=== PATIENT | female | born 1970 | race Caucasian/White ===

== ENCOUNTER 2017-06-12 20:13 | Emergency (ER) | payer OTHER ==
[~2017-06-12 20:13] MED LIST: HYDR-3533 PO; IBUP800T23 PO
[2017-06-12 20:14] VITALS: BP 136/76; PULSE 73; RESP 16; TEMP 98.8; O2SAT 98
[2017-06-12] MEDS ORDERED: SODIUM CHLOR 0.9% 1000 ML INJ 1,000 ML IV SCH (20:47)
[2017-06-12] MEDS ORDERED: KETOROLAC TROMETHAMINE 30 MG/ML (IVP) VIAL IV PUSH ONE (21:00)
[2017-06-12] MEDS ORDERED: SODIUM CHLORIDE 0.9% FLUSH 10 ML FLUSH IVF PRN (21:00)
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
[2017-06-12 21:30] VITALS: BP 118/61; PULSE 85; RESP 16; TEMP 98.3; O2SAT 97
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
[2017-06-12 21:37] LABS: BASOPHIL % 0.3 % (0.0-2.0); EOSINOPHIL % 0.3 % (0.0-4.0); HEMO FLAGS DIFF FINAL; LYMPH % 22.1 % (9.0-44.0); LYMPHOCYTE # 2.6 TH/MM3 (1.0-4.8); MEAN CELL VOLUME 86.5 FL (80.0-100.0); MEAN CORPUSCULAR HEMOGLOBIN 29.8 PG (27.0-34.0); MEAN CORPUSCULAR HGB CONC 34.4 % (32.0-36.0); MONO % 9.4 % (0.0-8.0); NEUT % 67.9 % (16.0-70.0); PLATELET COUNT 262 TH/MM3 (150-450); RED BLOOD COUNT 4.51 MIL/MM3 (4.00-5.30); RED CELL DISTRIBUTION WIDTH 13.8 % (11.6-17.2); WHITE BLOOD COUNT 11.8 TH/MM3 (4.0-11.0)
[2017-06-12 21:45] LABS: APTT (PATIENT) 27.5 SEC (24.3-30.1); PROTHROMBIN TIME - PATIENT 10.9 SEC (9.8-11.6)
[2017-06-12 21:52] VITALS: BP 118/61; PULSE 85; RESP 16; TEMP 98.3; O2SAT 97
[2017-06-12 21:53] LABS: ANION GAP 9 MEQ/L (5-15); BICARBONATE 23.9 MEQ/L (21.0-32.0); BLOOD UREA NITROGEN 9 MG/DL (7-18); CHLORIDE 104 MEQ/L (98-107); GLOMERULAR FILTRATION RATE 94 ML/MIN (>89); SODIUM (NA) 137 MEQ/L (136-145)
[2017-06-12 21:54] LABS: BETA HCG QUANT LESS THAN 1 MIU/ML (0-5)
[2017-06-12 21:56] LABS: POTASSIUM 4.3 MEQ/L (3.5-5.1)
[2017-06-12] MEDS ORDERED: IOHEXOL 350 MG/ML 10 ML VIAL (for RAD DIAG) IVCONTRAST ONE (22:38)
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
[2017-06-12] MEDS ORDERED: CYCL10TA PO (23:40)
[2017-06-12] MEDS ORDERED: NAPR500T2 PO (23:40)
[2017-06-12 23:50] VITALS: BP 125/91; PULSE 86; RESP 16; O2SAT 98
== END 2017-06-12 23:52 | disposition home or self-care (01) ==
LOC: NEPD 20:13
DX: S20.211A Contusion of right front wall of thorax, initial encounter (principal); S60.221A Contusion of right hand, initial encounter; S80.01XA Contusion of right knee, initial encounter; M51.34 Other intervertebral disc degeneration, thoracic region; M79.641 Pain in right hand; E04.1 Nontoxic single thyroid nodule; Z72.0 Tobacco use; V48.5XXA Car driver injured in noncollision transport accident in traffic accident, initial encounter
CPT/HCPCS: 70450; 71260; 72125; 72128; 72131; 73130; 73564; 74177; 80048; 84702; 85025; 85610; 85730; 86850; 86900; 86901; 96361; 96374; 99285; J1885; J7030; Q9967